=== PATIENT | male | born 1950 | race Caucasian/White ===

== ENCOUNTER 2022-03-17 05:16 | Day surgery (SDC) | payer OTHER ==
[2022-03-12 10:43] LABS: BASOPHILS # (AUTO) 0.1 X10'3 (0-0.2); BASOPHILS % (AUTO) 0.6 % (0-1); EOSINOPHILS # (AUTO) 0.3 X10'3 (0-0.9); EOSINOPHILS % (AUTO) 3.6 % (0-6); LYMPHOCYTES # (AUTO) 1.8 X10'3 (1.1-4.8); LYMPHOCYTES % (AUTO) 21.2 % (21-51); MEAN CORPUSCULAR HGB CONC 33.8 g/dL (33.0-36.5); MEAN CORPUSCULAR VOLUME 88.6 FL (78-98); MEAN PLATELET VOLUME 8.5 FL (7.4-10.4); MONOCYTES # (AUTO) 0.6 X10'3 (0-0.9); MONOCYTES % (AUTO) 7.2 % (2-12); NEUTROPHILS # (AUTO) 5.8 X10'3 (1.8-7.7); NEUTROPHILS % (AUTO) 67.4 % (42-75); PRE OP HEMATOCRIT 46.4 % (42.0-52.0); PRE OP HEMOGLOBIN 15.7 g/dL (14.0-17.9); PRE OP PLATELET COUNT 247 X10'3 (140-440); RED BLOOD COUNT 5.23 X10'6 (4.70-6.10); RED CELL DISTRIBUTION WIDTH 13.5 % (11.5-14.5)
[2022-03-12 11:02] LABS: ALBUMIN/GLOBULIN RATIO 1.2 (1.1-1.5); ALKALINE PHOSPHATASE 68 IU/L (46-116); BLOOD UREA NITROGEN 17 MG/DL (7-18); BUN/CREATININE RATIO 13.1 (5.4-32.0); CALCIUM 8.7 MG/DL (8.5-10.1); CHLORIDE 107 MMOL/L (99-107); PRE OP ALT 21 U/L (30-65); PRE OP ANION GAP 6 (8-16); PRE OP AST 14 U/L (10-37); PRE OP BILIRUB, TOTAL 0.6 MG/DL (0.0-1.0); PRE OP GLUCOSE 93 MG/DL (70-104); PRE OP POTASSIUM 4.8 MMOL/L (3.4-5.1); PRE OP SODIUM 140 MMOL/L (135-145); TOTAL CARBON DIOXIDE 27.4 MMOL/L (24-32); TOTAL PROTEIN 7.4 G/DL (6.4-8.2); eGFR 54 ML/MIN
[2022-03-17] VITALS (12 sets, daily range): BP systolic 116–180; BP diastolic 59–126
[~2022-03-17] VITALS: Ht 172.7 cm; Wt 92.6 kg
[~2022-03-17 05:16] MED LIST: ATOR10TA87 PO; GABA300C PO; LISI5TAB22 PO; METF-436 PO; ringers solution, lacted 1,000 ML IV SCH
[2022-03-17] MEDS ORDERED: tranexamic acid 650mg tablet PO ONE (05:30)
[2022-03-17] MEDS ORDERED: vancomycin 1,500 MG in NS 300ml IV soln IV ONE (05:30)
[2022-03-17] MEDS ORDERED: ceFAZolin inj. 2,000 MG in dextrose 5%-water 100 ML IV ONE (05:30)
[2022-03-17] MEDS ORDERED: famotidine 20mg tablet PO ONE (05:30)
[2022-03-17] MEDS ORDERED: ROPIVAcaine 0.5% (5mg/ml) 30ml vial ONE (06:56)
[2022-03-17] MEDS ORDERED: ketorolac trometh. 30mg/ml inj. ONE (06:56)
[2022-03-17] MEDS ORDERED: fentaNYL/PF 50MCG/1 ML 2ML syringe ONE ×2 (07:10→09:08)
[2022-03-17] MEDS ORDERED: midazolam 1 mg/ML 2ml injection ONE (07:10)
[2022-03-17] MEDS ORDERED: ROPIVAcaine 0.2%/PF PUMP/bolus 545 ML INTERSCALE SCH (07:35)
[2022-03-17] MEDS ORDERED: ondansetron/PF 4mg/2ml inj IV PRN (07:35)
[2022-03-17] MEDS ORDERED: morphine 2 MG/ML inj. syringe IV PRN (07:35)
[2022-03-17] MEDS ORDERED: ringers solution, lacted 1,000 ML IV SCH (07:35)
[2022-03-17] MEDS ORDERED: ROPIVAcaine 0.2% (10 MG/5 ML) BOLUS INJECTION INTERSCALE PRN (07:35)
[2022-03-17] MEDS ORDERED: HYDROmorphone/PF 0.2 MG/ML SYRINGE IV PRN ×2 (07:35)
[2022-03-17] MEDS ORDERED: rocuronium 10mg/ml inj IV ONE (07:36)
[2022-03-17] MEDS ORDERED: sevoflurane 250ml liquid IH ONE ×2 (07:36)
[2022-03-17] MEDS ORDERED: glycopyrrolate 0.2mg/ml inj ONE (09:07)
[2022-03-17] MEDS ORDERED: acetaminophen 1,000mg/100ml IV 100 ML IV ONE (09:07)
[2022-03-17] MEDS ORDERED: dexamethasone sod phosphate 4mg/ml inj. ONE (09:07)
[2022-03-17] MEDS ORDERED: ondansetron/PF 4mg/2ml inj ONE (09:07)
[2022-03-17] MEDS ORDERED: propofol inj 20 ML IV ONE (09:07)
--- NOTE | 2022-03-17 09:31 | NUR ---
Received from OR via HOSPITAL BED, accompanied by Anesthesiologist DR WAHL and report given by Anesthesiolgist. PT IS GROGGY BUT WAKES EASILY TO VERBAL STIMULI AND ANSWERES QUESTIONS APPROPRIATELY. PT PLACED ON BEDSIDE MONITOR, VSS. PT IS IN SR WITH RATE IN 60'S. PT RECEIVING 8L O2 TO MASK AND TOLERATING WELL, O2 SAT >95%. OT HAS DRSG AND SHOUDLER WRAP TO LEFT SHOULDER WITH ICE PACK IN PALCE. DRSG TO LEFT HSOULDER IS CDI. PT'S LEFT ARM IS IN SLING THAT PT GRACE IN FROM HOME. PT IS ABLE TO MOVES FINGERS TO COMMAND AND STATES NUMBNESS. PT HAS 18G PIV TO RT FA WITH LR INFUSING AT 100ML/HR. PT DENIES PAIN AT THIS TIME. WILL CONTINUE TO ASSESS.
[2022-03-17] MEDS ORDERED: HYDROcodone/acetaminophen 10/325mg tab PO PRN (10:05)
--- NOTE | 2022-03-17 11:09 | NUR ---
PT TAKEN OFF MONITOR AND GOING TO WALK AROUND TO MAKE SURE PT IS ABLE TI DISCHARGE SAFELY. PLAN IS FOR PT TO DISCHARGE HOME PER DR HOLGUIN. PT IS DOING WELL, VSS. PT DENIES PAIN. ON-Q IN CONNECTED. WILL CONTINUE TO ASSESS.
--- NOTE | 2022-03-17 11:35 | NUR ---
PT AMBULATED AROUND UNIT WITH NO ISSUES. NO C/O OF DIZZINESS, NAUSEA OR PAIN. CALL PLACED TO DR HOLGUIN TO LET HIM KNOW AR DID WELL WITH AMBULATING. ALSO VERIFIED THE OKAY FOR PT TO RETURN HOME AND CONTINUE ALL HOME MEDS, STATES THAT WAS OKAY. PT VOIDED WITH NO ISSUES. IS IN WAITING ROOM AND WILL BE NOTIFIED OF PT BEING NEARLY READY TO DISCHARGE.
--- NOTE | 2022-03-17 11:50 | NUR ---
ALL DISCHARGE CRITERIA HAS BEEN MET. VSS, PAIN AT A TOLERABLE LEVEL, VOIDING AND ABLE TO SAFELY AMBULATE AND TRANSFER SELF. IV TAKEN OUT WITHOUT ANY COMPLICATIONS. ALL DISCHARGE INSTRUCTIONS COVERED WITH PATIENT AND ALL QUESTIONS ANSWERED. PATIENT TAKEN OUT VIA WHEELCHAIR TO PERSONAL VEHICLE WHERE PT'S DROVE PATIENT HOME.
== END 2022-03-17 11:41 | disposition home or self-care (01) ==
LOC: PAS 05:16 → PAS IN 05:16 → UNDOADMIN 05:16 → EDSTATUS 07:30 → PAS 11:41
PROVIDERS: ATTEND Orthopaedic Surgery
DX: M19.012 Primary osteoarthritis, left shoulder (principal); M75.112 Incomplete rotator cuff tear or rupture of left shoulder, not specified as traumatic; Z79.899 Other long term (current) drug therapy; G89.18 Other acute postprocedural pain; Z98.49 Cataract extraction status, unspecified eye; Z88.8 Allergy status to other drugs, medicaments and biological substances; G62.9 Polyneuropathy, unspecified; Z98.890 Other specified postprocedural states
CPT/HCPCS: 23430; 23472; 36415; 64415; 76942; 80053; 82948; 85025; 87081; 87811; C1776; J0131; J0690; J1100; J1885; J2250; J2405; J2704; J2795; J3010; J3370; J3490; J7030; J7040; J7060; J7120; Z7506; Z7508; Z7512; A4565; A4615; A4618; A7000

== ENCOUNTER 2023-08-09 18:51 | Inpatient (IN) | payer OTHER, MEDICARE ==
[~2023-08-09] VITALS: Ht 172.7 cm; Wt 98.2 kg
[~2023-08-09 18:51] MED LIST changes: +ASPI-611 PO; -ATOR10TA87 PO; +ATOR20TA66 PO; +CLOP75TA34 PO; +LISI10TA27 PO; -LISI5TAB22 PO; +METO-395 PO; +OXYC-658 PO; +PANT40TA54 PO; -ringers solution, lacted 1,000 ML IV SCH
[2023-08-09] MEDS ORDERED: glucagon, human recombinant 1mg kit IV ONE ×2 (19:15→22:55)
[2023-08-09] MEDS ORDERED: normal saline 1000ML IV soln IVB STA (19:25)
[2023-08-09 19:34] LABS: BASOPHILS # (AUTO) 0.1 X10'3 (0-0.2); EOSINOPHILS # (AUTO) 0.1 X10'3 (0-0.9); EOSINOPHILS % (AUTO) 1.1 % (0-6); HEMATOCRIT 43.5 % (42.0-52.0); HEMOGLOBIN 13.9 g/dl (14.0-17.9); LYMPHOCYTES # (AUTO) 1.9 X10'3 (1.1-4.8); LYMPHOCYTES % (AUTO) 14.6 % (21-51); MEAN CORPUSCULAR HEMOGLOBIN 28.2 PG (27.0-31.0); MEAN CORPUSCULAR HGB CONC 31.9 g/dL (33.0-36.5); MEAN CORPUSCULAR VOLUME 88.5 FL (78-98); MEAN PLATELET VOLUME 8.9 FL (7.4-10.4); MONOCYTES # (AUTO) 0.9 X10'3 (0-0.9); MONOCYTES % (AUTO) 7.1 % (2-12); NEUTROPHILS # (AUTO) 10.1 X10'3 (1.8-7.7); NEUTROPHILS % (AUTO) 76.2 % (42-75); PLATELET COUNT 399 X10'3 (140-440); RED BLOOD COUNT 4.91 X10'6 (4.70-6.10); RED CELL DISTRIBUTION WIDTH 14.7 % (11.5-14.5); WHITE BLOOD COUNT 13.3 X10'3 (4.5-11.0)
[2023-08-09 19:43] LABS: ALBUMIN 3.4 G/DL (3.4-5.0); ALBUMIN/GLOBULIN RATIO 0.9 (1.1-1.5); ANION GAP 10 (8-16); ASPARTATE AMINO TRANSFERASE 24 U/L (10-37); BILIRUBIN,TOTAL 0.5 MG/DL (0.1-1.0); BLOOD UREA NITROGEN 41 MG/DL (7-18); BUN/CREATININE RATIO 19.2 (10.0-20.0); CALCIUM 8.9 MG/DL (8.5-10.1); CHLORIDE 102 MMOL/L (99-107); CREATININE 2.13 MG/DL (0.60-1.10); GLUCOSE 290 MG/DL (70-104); POTASSIUM 4.8 MMOL/L (3.5-5.1); SODIUM 135 MMOL/L (135-145); TOTAL CARBON DIOXIDE 23.5 MMOL/L (24-32); TOTAL PROTEIN 7.1 G/DL (6.4-8.2); eCRCL 29 ML/MIN; eGFR 31 ML/MIN
[2023-08-09 19:44] LABS: ALANINE AMINOTRANSFERASE 37 U/L (12-78); ALKALINE PHOSPHATASE 92 IU/L (46-116)
[2023-08-09 19:51] LABS: MAGNESIUM 1.6 MG/DL (1.5-2.4); PRO BRAIN NATRIURETIC PEPTIDE 1811 PG/ML (0-125)
[2023-08-09] MEDS ORDERED: atropine 0.1mg/ml 10ml syringe IV ONE ×2 (19:55→23:05)
[2023-08-09] MEDS ORDERED: DOPamine 400mg/D5W 250ml 250 ML IV SCH (19:55)
[2023-08-09] MEDS ORDERED: atropine 1 MG/1 ML vial IV ONE (19:55)
[2023-08-09] MEDS ORDERED: magnesium 2GM in 50ml NS 50 ML IV ONE (20:25)
[2023-08-10] VITALS (14 sets, daily range): BP systolic 108–164; BP diastolic 45–87; PULSE 72–92; RESP 17–20; TEMP 97.3–98.2; O2SAT 96–98
[2023-08-10] MEDS ORDERED: atropine 0.1mg/ml 10ml syringe IV ONE (00:30)
[2023-08-10] MEDS: DOPamine 400mg/D5W 250ml 250 ML IV SCH ×4 (00:46→17:39)
[2023-08-10 01:23] LABS: APTT 28 SECONDS (22-32); INR 1.1 INR; PROTHROMBIN TIME 11.4 SECONDS (9.0-12.0)
[2023-08-10] MEDS ORDERED: morphine 4 MG/ML inj SYRINge IV PRN (01:30)
[2023-08-10] MEDS ORDERED: morphine 2 MG/ML inj. syringe IV PRN (01:30)
[2023-08-10] MEDS ORDERED: magnesium hydroxide 30ml (MOM) UD suspension PO PRN (01:30)
[2023-08-10] MEDS ORDERED: acetaminophen 325mg tablet PO PRN ×2 (01:30)
[2023-08-10] MEDS ORDERED: ondansetron/PF 4mg/2ml inj IV PRN (01:30)
[2023-08-10] MEDS: sodium chloride 0.45% 1,000 ML IV SCH ×3 (01:45→23:53)
[2023-08-10 04:33] LABS: BILIRUBIN,URINE NEGATIVE (Neg); CLARITY,URINE CLEAR (Clear); COLOR,URINE STRAW (Yellow); GLUCOSE, URINE 100 mg/dl (Neg); KETONES,URINE NEGATIVE (Neg); LEUKOCYTE ESTERASE ,URINE NEGATIVE (Neg); NITRITES, URINE NEGATIVE (Neg); OCCULT BLOOD,URINE NEGATIVE (Neg); PH,URINE 5.5 (4.8-8.0); PROTEIN,URINE TRACE mg/dl (Neg); UROBILINOGEN,URINE 0.2 E.U/dL (0.2-1.0)
[2023-08-10 04:44] LABS: UA COLLECTION TYPE OTHER
[2023-08-10 04:45] LABS: SQUAMOUS EPITHELIAL CELL,UR FEW /LPF (FEW)
[2023-08-10 04:46] LABS: BACTERIA,URINE 1+ /HPF (Neg); RBC,URINE NONE SEEN /HPF (0-2); WBC,URINE 0-4 /HPF (0-4)
[2023-08-10] MEDS: heparin, porcine 5000 units/ml vial SQ SCH ×3 (07:13→23:49)
[2023-08-10] MEDS: pantoprazole 40mg Tablet.DR PO SCH (07:30)
[2023-08-10] MEDS ORDERED: dextrose 50%-water 50ml dispensing syringe IV PRN ×2 (08:45)
[2023-08-10] MEDS ORDERED: MESSAGE TO PHARMACY PO ONE (08:45)
[2023-08-10] MEDS ORDERED: DEXTROSE 15 GM of carb/4 tabs (each vial/BOTTLE has 4 tablets) PO PRN ×2 (08:45)
[2023-08-10] MEDS ORDERED: glucagon, human recombinant 1mg kit SUBCUT PRN (08:45)
[2023-08-10] MEDS ORDERED: insulin Lispro (HumaLOG) vial - multi-dose SQ SCH (08:45)
[2023-08-10] MEDS ORDERED: LIDOcaine 1% W/epiNEPHrine 1:100,000 20ml vial ONE (10:28)
[2023-08-10] MEDS ORDERED: midazolam 1 mg/ML 2ml injection ONE (10:28)
[2023-08-10] MEDS ORDERED: fentaNYL/PF 50MCG/1 ML 2ML syringe ONE (10:28)
[2023-08-10] MEDS ORDERED: ceFAZolin 1000mg inj ONE (10:29)
[2023-08-10] MEDS ORDERED: iohexol 350 MG/ML 50ML vial IV ONE (10:58)
[2023-08-10] MEDS ORDERED: HYDROcodone/acetaminophen 5mg/325mg tablet PO PRN (14:00)
[2023-08-10] MEDS ORDERED: vancomycin/NS 1 GM ADD-VANTAGE 250 ML X 1 DOSE IV ONE (14:05)
[2023-08-10] MEDS ORDERED: gabapentin 300mg capsule PO PRN (16:55)
[2023-08-10] MEDS: HYDROcodone/acetaminophen 10/325mg tab PO PRN ×2 (17:44→21:49)
[2023-08-10] MEDS: cephalexin 500mg capsule PO SCH (20:18)
[2023-08-10] MEDS ORDERED: insulin glargine (Lantus) pen - multi-dose SQ SCH (21:00)
[2023-08-11 02:00] VITALS: BP 158/82; PULSE 73; RESP 19; TEMP 97.3; O2SAT 96
[2023-08-11] MEDS: cephalexin 500mg capsule PO SCH ×2 (02:36→08:28)
[2023-08-11] MEDS: HYDROcodone/acetaminophen 10/325mg tab PO PRN (02:37)
[2023-08-11 06:00] VITALS: BP 161/86; PULSE 79; RESP 15; TEMP 97.6; O2SAT 94
[2023-08-11 07:00] VITALS: RESP 15; O2SAT 94
[2023-08-11] MEDS: DOPamine 400mg/D5W 250ml 250 ML IV SCH (07:14)
[2023-08-11] MEDS ORDERED: pantoprazole 40mg Tablet.DR PO SCH (07:30)
[2023-08-11 07:42] LABS: BASOPHILS # (AUTO) 0.1 X10'3 (0-0.2); BASOPHILS % (AUTO) 0.5 % (0-1); EOSINOPHILS # (AUTO) 0.1 X10'3 (0-0.9); EOSINOPHILS % (AUTO) 1.4 % (0-6); HEMATOCRIT 37.3 % (42.0-52.0); HEMOGLOBIN 12.3 g/dl (14.0-17.9); LYMPHOCYTES # (AUTO) 1.1 X10'3 (1.1-4.8); LYMPHOCYTES % (AUTO) 11.1 % (21-51); MEAN CORPUSCULAR HEMOGLOBIN 28.7 PG (27.0-31.0); MEAN CORPUSCULAR HGB CONC 32.9 g/dL (33.0-36.5); MEAN CORPUSCULAR VOLUME 87.3 FL (78-98); MEAN PLATELET VOLUME 8.5 FL (7.4-10.4); MONOCYTES # (AUTO) 0.7 X10'3 (0-0.9); MONOCYTES % (AUTO) 7.1 % (2-12); NEUTROPHILS # (AUTO) 8.2 X10'3 (1.8-7.7); NEUTROPHILS % (AUTO) 79.9 % (42-75); PLATELET COUNT 260 X10'3 (140-440); RED BLOOD COUNT 4.27 X10'6 (4.70-6.10); RED CELL DISTRIBUTION WIDTH 14.4 % (11.5-14.5); WHITE BLOOD COUNT 10.3 X10'3 (4.5-11.0)
[2023-08-11] MEDS ORDERED: CEPH-585 PO (07:48)
[2023-08-11 07:57] LABS: APTT 28 SECONDS (22-32); INR 1.1 INR; PROTHROMBIN TIME 11.4 SECONDS (9.0-12.0)
[2023-08-11] MEDS ORDERED: metoprolol succinate 25mg (24-HOUR) SR. Tablet PO SCH (08:00)
[2023-08-11] MEDS ORDERED: lisinopril 10 MG tablet PO SCH (08:00)
[2023-08-11] MEDS ORDERED: atorvastatin 20mg tablet PO SCH (08:00)
[2023-08-11] MEDS: heparin, porcine 5000 units/ml vial SQ SCH (08:00)
[2023-08-11] MEDS ORDERED: aspirin 81mg, enteric-coated 1 TAB TABLET.DR PO SCH (08:00)
[2023-08-11] MEDS ORDERED: clopidogrel 75mg tablet PO SCH (08:00)
[2023-08-11 08:20] LABS: ALBUMIN 2.8 G/DL (3.4-5.0); ANION GAP 10 (8-16); BILIRUBIN,TOTAL 0.9 MG/DL (0.1-1.0); BLOOD UREA NITROGEN 30 MG/DL (7-18); BUN/CREATININE RATIO 21.6 (10.0-20.0); CALCIUM 8.6 MG/DL (8.5-10.1); CHLORIDE 106 MMOL/L (99-107); CREATININE 1.39 MG/DL (0.60-1.10); GLUCOSE 151 MG/DL (70-104); MAGNESIUM 1.6 MG/DL (1.5-2.4); PHOSPHORUS 2.8 MG/DL (2.3-4.5); POTASSIUM 4.8 MMOL/L (3.5-5.1); SODIUM 137 MMOL/L (135-145); TOTAL CARBON DIOXIDE 21.2 MMOL/L (24-32); TOTAL PROTEIN 6.4 G/DL (6.4-8.2); eCRCL 45 ML/MIN; eGFR 50 ML/MIN
[2023-08-11 08:21] LABS: ALANINE AMINOTRANSFERASE 29 U/L (12-78); ALBUMIN/GLOBULIN RATIO 0.8 (1.1-1.5); ALKALINE PHOSPHATASE 75 IU/L (46-116); ASPARTATE AMINO TRANSFERASE 34 U/L (10-37)
[2023-08-11] MEDS: pantoprazole 40mg Tablet.DR PO SCH (08:26)
[2023-08-11 11:00] VITALS: BP 178/89; PULSE 82; RESP 20; TEMP 98.3; O2SAT 97
[2023-08-11 11:55] VITALS: RESP 16
== END 2023-08-11 12:09 | disposition home or self-care (01) | DRG 242 ==
LOC: ER 18:52 → ED HOLD 08-10 01:32 → PCU 3S 08-10 17:00
PROVIDERS: ADMIT Surgery; ATTEND Family Medicine
PROC: 0JH606Z Insertion of Pacemaker, Dual Chamber into Chest Subcutaneous Tissue and Fascia, Open Approach (ICD-10-PCS; principal; 2023-08-10)
PROC: 02H63JZ Insertion of Pacemaker Lead into Right Atrium, Percutaneous Approach (ICD-10-PCS; 2023-08-10)
PROC: 02HK3JZ Insertion of Pacemaker Lead into Right Ventricle, Percutaneous Approach (ICD-10-PCS; 2023-08-10)
DX: I44.2 Atrioventricular block, complete (principal); N17.0 Acute kidney failure with tubular necrosis; I50.32 Chronic diastolic (congestive) heart failure; I13.0 Hypertensive heart and chronic kidney disease with heart failure and stage 1 through stage 4 chronic kidney disease, or unspecified chronic kidney disease; D64.9 Anemia, unspecified; E11.22 Type 2 diabetes mellitus with diabetic chronic kidney disease; D72.823 Leukemoid reaction; E66.9 Obesity, unspecified; Z20.822 Contact with and (suspected) exposure to COVID-19; N18.30 Chronic kidney disease, stage 3 unspecified; E78.5 Hyperlipidemia, unspecified; I25.10 Atherosclerotic heart disease of native coronary artery without angina pectoris; Z95.5 Presence of coronary angioplasty implant and graft; Z82.5 Family history of asthma and other chronic lower respiratory diseases; I25.2 Old myocardial infarction; Z68.32 Body mass index [BMI] 32.0-32.9, adult; Z79.899 Other long term (current) drug therapy; Z79.82 Long term (current) use of aspirin
CPT/HCPCS: 33208; 36415; 71045; 71046; 80053; 81001; 82948; 83036; 83735; 83880; 84100; 84484; 85025; 85610; 85730; 87081; 87811; 92953; 93005; 93306; 99152; 99153; 99285; A4314; A4565; A6258; A6449; C1785; C1898; G0378; J0461; J0690; J1265; J1610; J1644; J1815; J2250; J3010; J3370; J3475; J3490; J7030; Q9967